=== PATIENT | female | born 1975 | race Caucasian/White ===

== ENCOUNTER → 2021-11-09 | Outpatient (CLI) | payer OTHER ==
[~2021-11-09] MED LIST: LOESTRIN 24 FE1 EACH PO; LOESTRIN1 EAC1; MUCINEX600 MG PO; PRADAXA150 MG PO; TOPROL XL25 MG PO
== END ==
LOC: CAT 13:27
PROVIDERS: ATTEND Internal Medicine
DX: Z13.6 Encounter for screening for cardiovascular disorders (principal); I25.10 Atherosclerotic heart disease of native coronary artery without angina pectoris; E78.00 Pure hypercholesterolemia, unspecified